=== PATIENT | male | born 1985 | race American Indian/Alaskan Native ===

== ENCOUNTER 2022-04-07 22:07 | Emergency (ER) | payer OTHER ==
[2022-04-07] MEDS ORDERED: IBUPROFEN 800 MG TAB PO ONE (23:02)
[2022-04-07] MEDS ORDERED: LIDOCAINE (1%) 10 MG/1 ML VIAL 20 ML MDV INFILTRATI ONE (23:02)
[2022-04-07] MEDS ORDERED: ACETAMINOPHEN 500 MG TAB PO ONE (23:03)
[2022-04-07] MEDS ORDERED: RABIES VACCINE, HUMAN DIPLOID/PF 2.5 UNIT/ML VIAL IM ONE (23:53)
[2022-04-07] MEDS ORDERED: RABIES IMMUNE GLOBULIN P/F 300 UNIT/ML INJ 5 ML IM ONE (23:53)
[2022-04-07] MEDS ORDERED: TETANUS,DIPH,PERTUSS(ACELL) VACCINE 0.5 ML SYRINGE IM ONE (23:54)
--- NOTE | 2022-04-08 01:50 | Emergency Department Report ---
ED Animal Bite HPI - General Chief Complaint: Animal Bite Stated Complaint: DOG BITE Source: patient Mode of arrival: Ambulatory Limitations: No Limitations - History of Present Illness Initial Comments: Patient is a 36-year-old male with no past medical history who presents to the ED with complaint of acute onset right lower leg pain due to multiple puncture wounds from a dog bite about 2 hours ago. Patient states that he was responding to a domestic fire alarm when the dog in the family attacked him and bit him on the right lower leg causing multiple puncture wound. Patient states that the mid teacher of the dog confirmed that the dog is not up-to-date with vaccinations. Patient himself states that he is not up-to-date with his tetanus vaccinations. Patient denies dizziness, syncope, nausea and vomiting, dizziness, syncope, numbness and tingling or weakness of lower extremities bilaterally. MD Complaint: animal bite (Dog bite of right lower leg), animal-related injury (Dog bite) -: Sudden, hour(s) (2) Location: other (Right lower leg) Right: Leg (Multiple puncture wounds on right lower leg) Animal: dog Animal Control Notified: Yes Description: household pet, immunizations unknown Mechanism: bite, scratch, contact with mucous membr Pain Description: sharp, constant Severity scale (0 -10): 7 Context: unprovoked Associated Symptoms: none, bleeding. denies: erythema, discharge from wound, fever, chills, rash, loss of consciousness, cough, headache, diaphoresis, shortness of breath Treatments Prior to Arrival: wound dressing(s), irrigation - Related Data Patient Tetanus UTD: No (Given tetanus vaccination during the visit) Previous Rx's Medication Instructions Recorded Last Taken Type Amoxicillin/K Clav Tab [Augmentin 1 tab PO Q12HR #20 tab 04/08/22 Unknown Rx 875 mg] Ibuprofen [Motrin] 800 mg PO Q8HR PRN #30 tablet 04/08/22 Unknown Rx Allergies Allergy/AdvReac Type Severity Reaction Status Date / Time No Known Allergies Allergy Verified 04/08/22 00:26 ED Review of Systems ROS: Stated complaint: DOG BITE Other details as noted in HPI Constitutional: denies: chills, fever Eyes: denies: eye pain, eye discharge, vision change ENT: denies: ear pain, throat pain Respiratory: denies: cough, shortness of breath, wheezing Cardiovascular: denies: chest pain, palpitations Endocrine: no symptoms reported Gastrointestinal: denies: abdominal pain, nausea, diarrhea Genitourinary: denies: urgency, dysuria Musculoskeletal: arthralgia (Right lower leg bleeding multiple puncture wounds), myalgia. denies: back pain, joint swelling Skin: other (Multiple puncture wounds on right lower leg). denies: rash, lesions Neurological: denies: headache, weakness, paresthesias Psychiatric: denies: anxiety, depression Hematological/Lymphatic: denies: easy bleeding, easy bruising ED Past Medical Hx - Medications Home Medications: Home Medications Medication Instructions Recorded Confirmed Last Taken Type Amoxicillin/K Clav Tab [Augmentin 1 tab PO Q12HR #20 tab 04/08/22 Unknown Rx 875 mg] Ibuprofen [Motrin] 800 mg PO Q8HR PRN #30 tablet 04/08/22 Unknown Rx ED Physical Exam - General Limitations: No Limitations General appearance: alert, in no apparent distress - Head Head exam: Present: atraumatic, normocephalic, normal inspection - Eye Eye exam: Present: normal appearance, PERRL, EOMI Pupils: Present: normal accommodation - ENT ENT exam: Present: normal exam, normal orophraynx, mucous membranes moist, TM's normal bilaterally, normal external ear exam - Neck Neck exam: Present: normal inspection, full ROM. Absent: tenderness - Respiratory Respiratory exam: Present: normal lung sounds bilaterally. Absent: respiratory distress, wheezes, rales, rhonchi, chest wall tenderness, accessory muscle use, decreased breath sounds, prolonged expiratory - Cardiovascular Cardiovascular Exam: Present: regular rate, normal rhythm, normal heart sounds. Absent: systolic murmur, diastolic murmur, rubs, gallop - GI/Abdominal GI/Abdominal exam: Present: soft, normal bowel sounds. Absent: tenderness, guarding, rebound, hyperactive bowel sounds, hypoactive bowel sounds, organomegaly - Extremities Exam Extremities exam: Present: normal inspection, full ROM, tenderness (Palpable right lower leg tenderness due to bleeding 3 cm laceration wound from a dog bite on right lower leg, plus multiple small puncture wounds on right lower leg), normal capillary refill. Absent: pedal edema, joint swelling, calf tenderness - Back Exam Back exam: Present: normal inspection, full ROM. Absent: tenderness, CVA tenderness (R), CVA tenderness (L), muscle spasm, paraspinal tenderness, vertebral tenderness - Neurological Exam Neurological exam: Present: alert, oriented X3, CN II-XII intact, normal gait, reflexes normal - Psychiatric Psychiatric exam: Present: normal affect, normal mood - Skin Skin exam: Present: warm, dry, intact, normal color, other (Bleeding 3 cm laceration wound on right lower leg; multiple small puncture wounds). Absent: rash ED Course Vital Signs 04/07/22 04/07/22 22:33 22:38 Temperature 98.0 F Pulse Rate 70 Respiratory 18 Rate Blood Pressure 162/62 146/65 O2 Sat by Pulse 96 Oximetry - Laceration /Wound Repair Right Lateral Calf Wound Location: lower extremity (Lateral right lower leg laceration wound) Wound Length (cm): 3 Wound's Depth, Shape: linear, contused tissue Wound Explored: contaminated Irrigated w/ Saline (ccs): 400 Betadine Prep?: Yes Anesthesia: 1% Lidocaine Volume Anesthetic (ccs): 8 Wound Debrided: extensive Wound Repaired With: sutures Suture Size/Type: 3:0, proline Number of Sutures: 5 Layer Closure?: No Sterile Dressing Applied?: Yes Progress: The wound was cleaned extensively and debrided with normal saline solutions and Betadine solutions. Lidocaine 1% solution was infiltrated around the wound for local anesthesia. When anesthesia was fully achieved, the wound was sutured per protocol using Prolene 3-0 sutures for a total of 5 sutures. Patient tolerated procedure well. The wound was then dressed appropriately and the patient discharged home on pain medications and antibiotics and was advised to follow-up with his primary care physician in 7 to 10 days for reevaluation or return to the ED immediately if symptoms get worse. Critical care attestation.: If time is entered above; I have spent that time in minutes in the direct care of this critically ill patient, excluding procedure time. ED Disposition Clinical Impression: Dog bite of multiple sites of right lower extremity Qualifiers: Encounter type: initial encounter Qualified Code(s): S81.851A - Open bite, right lower leg, initial encounter Puncture wound of right lower leg Qualifiers: Encounter type: initial encounter Qualified Code(s): S81.831A - Puncture wound without foreign body, right lower leg, initial encounter Muscle strain of right lower extremity Qualifiers: Encounter type: initial encounter Qualified Code(s): S86.911A - Strain of unspecified muscle(s) and tendon(s) at lower leg level, right leg, initial encounter Disposition: HOME / SELF CARE / HOMELESS Is pt being admited?: No Does the pt Need Aspirin: No Condition: Stable Instructions: Animal Bite, Adult, [id number], Puncture Wound, [id number], Muscle Strain, [id number], Sutured Wound Care, [id number] Additional Instructions: Take medication with food, drink plenty of fluids, follow-up with your primary care physician in 7 to 10 days for reevaluation. Return to the ED immediately if symptoms get worse. Follow-up with either [facility], [facility] or [facility] on days 3 (April 11, 2022), Day 7 (April 15, 2022) and Day 14 (April 22, 2022) for serial rabbies vaccination. Return to the ED in 12 to 10 days for suture removal. Prescriptions: Amoxicillin/K Clav Tab [Augmentin 875 mg] 1 tab PO Q12HR #20 tab Ibuprofen [Motrin] 800 mg PO Q8HR PRN #30 tablet PRN Reason: Pain , Severe (7-10) Referrals: [facility] [Provider Group] - 7-10 days Forms: Work/School Release Form(ED) Time of Disposition: 01:55 Print Language: YI
[2022-04-08 05:11] VITALS: BP 120/54
== END 2022-04-08 02:45 | disposition home or self-care (01) ==
LOC: ED 22:07
DX: S81.831A Puncture wound without foreign body, right lower leg, initial encounter (principal); S86.911A Strain of unspecified muscle(s) and tendon(s) at lower leg level, right leg, initial encounter; W54.0XXA Bitten by dog, initial encounter; Y93.89 Activity, other specified; Y92.89 Other specified places as the place of occurrence of the external cause; Y99.8 Other external cause status
CPT/HCPCS: 90375; 90471; 90472; 90675; 90715; 99282